=== PATIENT | female | born 1980 | race Caucasian/White ===

== ENCOUNTER → 2017-12-29 | Outpatient (CLI) | payer OTHER ==
[~2017-12-29] MED LIST: AMLO-109 PO; BIMA5DRO2; CYCL10TA29 PO; DOXY-179 PO; FLU60SYR30 IM ONLY; LEVO1TAB32 PO; MELO-207 PO; TRET45CR28 TP; [UNRECOGNIZED DRUG - CODE] PO; [UNRECOGNIZED DRUG - CODE] PO; [UNRECOGNIZED DRUG - OTHER] PO
[2017-12-29 10:23] LABS: PLATELET COUNT, AUTOMATED 226 K/uL (150-450)
--- NOTE | 2017-12-29 10:54 | EKG ---
[place] [facility] [place] NAME: BRADEN LARSON : [id number] MR: [id number]: [id number] EXAM DATE: ORDERING PHYSICIAN: ABRHAAM DAILEY TECHNOLOGIST: CORWIN BAZZI Test Reason : HYPERTENSION Blood Pressure : / mmHG Vent. Rate : 052 BPM Atrial Rate : 052 BPM P-R Int : 136 ms QRS Dur : 092 ms QT Int : 444 ms P-R-T Axes : 031 032 -18 degrees QTc Int : 412 ms Sinus bradycardia T wave abnormality, consider inferior ischemia Abnormal ECG No previous ECGs available Confirmed by ABRAHAM DAILEY ([id number]) on 12/29/2017 3:03:48 PM Referred By: Confirmed By:ABRAHAM DAILEY
== END ==
LOC: LAB 09:58
PROVIDERS: ATTEND Emergency Medicine
DX: I10 Essential (primary) hypertension (principal); R94.31 Abnormal electrocardiogram [ECG] [EKG]; R82.79 Other abnormal findings on microbiological examination of urine
CPT/HCPCS: 36415; 81001; 82040; 82247; 82310; 82374; 82435; 82565; 82947; 84075; 84132; 84155; 84295; 84443; 84450; 84460; 84484; 84520; 85025; 87088

== ENCOUNTER → 2018-01-06 | Outpatient (CLI) | payer OTHER | LOC: US 03:39 | PROVIDERS: ATTEND Emergency Medicine | DX: I50.20 Unspecified systolic (congestive) heart failure (principal); Q21.0 Ventricular septal defect | CPT/HCPCS: 93306 ==

== ENCOUNTER → 2018-04-10 | Outpatient (CLI) | payer OTHER ==
[~2018-04-10] MED LIST changes: +BENZCLINPT TOP; +CARV12.577 PO; +LOSA25TA47 PO; +SPIR25TA76 PO; +[UNRECOGNIZED DRUG - CODE] PO
== END ==
LOC: LAB 07:34
PROVIDERS: ATTEND Internal Medicine Cardiovascular Disease
DX: I10 Essential (primary) hypertension (principal)
CPT/HCPCS: 82384

== ENCOUNTER → 2018-10-26 | Outpatient (CLI) | payer OTHER ==
[~2018-10-26] MED LIST changes: +FLU60VIA41 IM; +LEVO50TA80 PO; +TRET20CR37 TP
== END ==
LOC: LAB 09:10
PROVIDERS: ATTEND Emergency Medicine
DX: E03.9 Hypothyroidism, unspecified (principal); I10 Essential (primary) hypertension
CPT/HCPCS: 36415; 82310; 82374; 82435; 82565; 82947; 84132; 84295; 84439; 84443; 84481; 84520; 86376; 86800